=== PATIENT | male | born 1980 | race African-American/Black ===

== ENCOUNTER 2019-07-27 22:17 | Emergency (ER) | payer OTHER ==
[2019-07-27] MEDS: LORAZEPAM 2 MG INJ IV (22:47)
[2019-07-27 22:49] LABS: ADD MAN DIFF? NO
[2019-07-27 22:50] LABS: WHITE BLOOD COUNT 7.5 10^3/ul (4.8-10.8)
[2019-07-27 22:50] LABS: BASOPHIL # 0.1 10^3/ul (0.0-0.1); BASOPHILS % 0.7 % (0.0-2.0); EOSINOPHILS # 0.2 10^3/ul (0.0-0.5); EOSINOPHILS % 2.1 % (0.0-7.0); HEMATOCRIT 38.3 % (42.0-52.0); LYMPHOCYTES # 3.7 10^3/ul (0.8-2.9); LYMPHOCYTES % 49.9 % (15.0-51.0); MEAN CORPUSCULAR HEMOGLOBIN 26.2 pg (29.0-33.0); MEAN CORPUSCULAR HGB CONC 31.3 g/dl (32.0-37.0); MEAN CORPUSCULAR VOLUME 83.6 fl (82.0-101.0); MEAN PLATELET VOLUME 10.8 fl (7.4-10.4); MONOCYTE # 0.4 10^3/ul (0.3-0.9); MONOCYTES % 5.4 % (0.0-11.0); NEUTROPHIL # 3.1 10^3/ul (1.6-7.5); NEUTROPHILS % 41.6 % (39.0-77.0); PLATELET COUNT 265 10^3/UL (140-415); RED BLOOD COUNT 4.58 10^6/ul (4.70-6.10)
[2019-07-27 23:08] LABS: ANION GAP 7 (5-13); BLOOD UREA NITROGEN 14 mg/dl (7-20); CALCIUM 9.6 mg/dl (8.4-10.2); CARBON DIOXIDE 23 mmol/L (21-31); CHLORIDE 107 mmol/L (97-110); CREATININE 1.11 mg/dl (0.61-1.24); Estimated GFR > 60 mL/min (>60); GLUCOSE 99 mg/dl (70-220); POTASSIUM 3.6 mmol/L (3.5-5.1); SODIUM 137 mmol/L (135-144)
[2019-07-27 23:09] LABS: ETHANOL < 10.0 mg/dl (0-0)
[2019-07-27 23:13] LABS: D-DIMER 384.37 ng/ml (<460)
[2019-07-27 23:20] LABS: TROPONIN-I < 0.012 ng/ml (0.000-0.120)
[2019-07-27] MEDS: HYDROmorphONE 0.5 MG/0.5 ML SYG IV (23:50)
[2019-07-28 00:11] LABS: AMPHETAMINE/METHAMPHETAMINE Negative (NEGATIVE); BARBITURATES Negative (NEGATIVE); BENZODIAZEPINES Negative (NEGATIVE); CANNABINOIDS Negative (NEGATIVE); COCAINE Negative (NEGATIVE)
[2019-07-28 00:14] LABS: OPIATES Positive (NEGATIVE)
[2019-07-28] MEDS: ONDANSETRON 4 MG INJ IV (01:21)
[2019-07-28] MEDS: HYDROmorphONE 0.5 MG/0.5 ML SYG IV (01:21)
[2019-07-28 01:52] LABS: TROPONIN-I < 0.012 ng/ml (0.000-0.120)
== END 2019-07-28 02:26 | disposition home or self-care (01) ==
LOC: E/R 07-28 02:26
DX: R07.89 Other chest pain (principal); F41.9 Anxiety disorder, unspecified; D64.9 Anemia, unspecified
CPT/HCPCS: 36415; 71045; 80048; 80307; 84484; 85025; 85378; 93005; 96374; 96375; 96376; 99285-25